=== PATIENT | male | born 1945 | race Caucasian/White ===

== ENCOUNTER 2019-02-03 10:16 | Inpatient (IN) ==
[2019-02-03] MEDS ORDERED: FUROSEMIDE 10 MG/ML VIAL IV ONE (10:27)
[2019-02-03 10:57] LABS: Hematocrit 42.4 % (42.0-52.0); Hemoglobin 14.2 gm/dL (13.5-18.0); Mean Corpuscular Hemoglobin 30.5 pg (27-31); Mean Corpuscular Hgb Conc 33.5 g/dl (32-36); Mean Platelet Volume 9.2 fl (8-11.3); Neutrophil # 8.7 K/mm3 (1.3-6.0); Platelet Count 294 K/mm3 (150-450); Red Blood Count 4.66 M/mm3 (4.7-6.0); Red Cell Distribution Width 14.2 % (11.5-14.0); White Blood Count 10.2 K/mm3 (4.0-10.5)
[2019-02-03 11:02] LABS: Prothrombin Time (Patient) 59.5 Seconds (9.1-10.7)
[2019-02-03 11:06] LABS: Urine Bilirubin Negative (NEGATIVE); Urine Blood 250 /ul (NEGATIVE); Urine Ketone Negative (NEGATIVE); Urine Nitrite Negative (NEGATIVE); Urine Protein 100 mg/dL (NEGATIVE); Urine Specific Gravity >=1.030 SP.GR. (1.005-1.030); Urine Urobilinogen Normal (NORMAL); Urine pH 5.5 pH (5.0-7.0)
[2019-02-03 11:13] LABS: INR 6.46 INR (0.92-1.08)
[2019-02-03 11:15] LABS: Albumin * 2.3 gm/dl (3.4-5.0); Anion Gap 13.4 mmol/L (6.8-13.8); BUN/Creatinine Ratio 13.8 (9.0-21.6); Bilirubin, Total 0.4 mg/dL (0.0-1.1); Carbon Dioxide 27.2 mmol/L (24-32.6); Potassium 5.6 mmol/L (3.4-4.6); Total Protein 6.5 gm/dL (6.2-8.2); Troponin I 0.093 ng/mL (0.00-0.10)
[2019-02-03 11:16] LABS: CRP 12.8 mg/dL (0.0-0.9)
[2019-02-03 11:25] LABS: Urine Appearance Turbid (CLEAR); Urine Bacteria 1+; Urine Color Brown; Urine RBC >50 /hpf (0-5); Urine WBC >50 /hpf (0-5); Urine Yeast Many - 3+
[2019-02-03] MEDS ORDERED: cefTRIAXone SODIUM 1,000 MG/100 ML BAG IV ONE (12:04)
--- NOTE | 2019-02-03 13:56 | ERNOTE ---
Medical Problem HPI - Narrative Date of Service: 02/03/19 - General Chief Complaint: General Assessment Time Seen by Provider: 02/03/19 10:18 Source: patient, family Exam Limitations: clinical condition - Immun/Allergies/Home Medications Immunizations: IMMUNIZATION HX Immunizations Up to Date Yes History of Influenza Vaccine No Hx Pneumococcal Vaccination No Allergies/Adverse Reactions: Allergies No Known Drug Allergies Allergy (Verified 01/29/19 10:15) Home Medications: HOME MEDICATIONS Acetaminophen [Tylenol] 650 mg PO Q4H PRN 01/26/19 [Last Taken Unknown] Ascorbic Acid [Vitamin C] 500 mg PO DAILY 01/26/19 [Last Taken Unknown] Atorvastatin Calcium [Lipitor] 20 mg PO DAILY 01/26/19 [Last Taken Unknown] Benzocaine/Menthol [Cepacol Sore Throat Lozenge] 1 ea MM Q4H PRN 01/26/19 [Last Taken Unknown] Cholecalciferol (Vitamin D3) [Vitamin D] 2,000 unit PO DAILY 01/26/19 [Last Taken Unknown] Cyclobenzaprine HCl [Flexeril] 10 mg PO TID 01/26/19 [Last Taken Unknown] DULoxetine HCL [Cymbalta] 40 mg PO DAILY 01/26/19 [Last Taken Unknown] Finasteride [Proscar] 5 mg PO DAILY 01/26/19 [Last Taken Unknown] Furosemide 20 mg PO QAM 01/26/19 [Last Taken Unknown] Gabapentin 300 mg PO TID 01/26/19 [Last Taken Unknown] HYDROcodone/ACETAMINOPHEN [[place] 5-325] 1 tab PO Q6H PRN 01/26/19 [Last Taken Unknown] Ibuprofen 800 mg PO TID 01/26/19 [Last Taken Unknown] Insulin Aspart [Novolog] 1 units SC AC 01/26/19 [Last Taken Unknown] Insulin Glargine,Hum.rec.anlog [Lantus] 60 units SC HS 01/26/19 [Last Taken Unknown] Levothyroxine Sodium [Synthroid] 25 mcg PO DAILY 01/26/19 [Last Taken Unknown] Losartan Potassium [Cozaar] 100 mg PO DAILY 01/26/19 [Last Taken Unknown] Metoclopramide HCl [Reglan] 5 mg PO DAILY 01/26/19 [Last Taken Unknown] Metoprolol Succinate [Toprol Xl] 50 mg PO DAILY 01/26/19 [Last Taken Unknown] Mirtazapine [Remeron] 30 mg PO HS 01/26/19 [Last Taken Unknown] Polyethylene Glycol 3350 [Miralax] 17 gm PO DAILY 01/26/19 [Last Taken Unknown] Potassium Chloride [Klor-Con M20] 40 meq PO DAILY 01/26/19 [Last Taken Unknown] Prochlorperazine Maleate 5 mg PO Q6H 01/26/19 [Last Taken Unknown] Psyllium Husk (with Sugar) [Metamucil] 1 pkt PO DAILY 01/26/19 [Last Taken Unknown] Sennosides/Docusate Sodium [Senna-S Tablet] 1 tab PO Q12H 01/26/19 [Last Taken Unknown] Tamsulosin HCl [Flomax] 0.4 mg PO DAILY 01/26/19 [Last Taken Unknown] Warfarin Sodium [Jantoven] 2.5 mg PO SUTUWETHSA 01/26/19 [Last Taken Unknown] Warfarin Sodium [Jantoven] 5 mg PO MOFR 01/26/19 [Last Taken Unknown] amLODIPine BESYLATE [Norvasc] 10 mg PO DAILY 01/26/19 [Last Taken Unknown] Sulfamethoxazole/Trimethoprim [Bactrim Ds] 1 tab PO BID 02/03/19 [Last Taken Unknown] - History of Present History Narrative: patient presents to ed with c/o fever confusion anf weakness, has been treated for uti and has had med changed once Timing: constant, getting worse Modifying Factors - (Improves): Present: other - nothing Modifying Factors - (Worsens): Present: other - nothing Review of Systems - Review of Systems Constitutional: Present: See HPI, weakness, fatigue, malaise EYE: Present: no symptoms reported ENT: Present: no symptoms reported Respiratory: Present: no symptoms reported Cardiology: Present: no symptoms reported Gastrointestinal/Abdominal: Present: no symptoms reported Genitourinary: Present: See HPI, other - ongoing treatment for uti Musculoskeletal: Present: no symptoms reported Skin: Present: no symptoms reported Neurological: Present: dizziness/light-headedness, weakness Medical History (Updated 02/02/19 @ 08:38 by Murtaza Dubon MD) Major depression, recurrent (Chronic) Atrial fibrillation (Chronic) Atherosclerotic heart disease of [place] coronary artery without angina pectoris Atrial fibrillation Benign prostate hyperplasia Cardiac pacemaker Chronic obstructive pulmonary disease Coagulation defect, unspecified Congestive heart failure (CHF) Depression Disorder of bilirubin metabolism, unspecified Family history unknown Gilbert syndrome Hypertension Hypokalemia Hypothyroidism [facility] (current) use of anticoagulants Low back pain Muscle wasting and atrophy, not elsewhere classified, multiple sites Obstructive sleep apnea Retention of urine Type 2 diabetes mellitus Surgical History: Surgical History (Updated 01/26/19 @ 21:38 by Ivon Espino RN) Surgical history unknown Social History: (Last Reviewed 02/03/19 @ 10:54 by Harshad Calero RN) Social History: assisted: Yes current occupational status: retired Alcohol: alcohol intake: former Substance Use: substance use type: does not use Dietary Habits: caffeine: No Physical Exam - Physical Exam General Appearance: Present: mild distress, lethargic Head Exam: Present: normal inspection, no evidence of injury Eye Exam: Normal inspection: bilateral, PERRL: bilateral, EOMI: bilateral Ears, Nose, Throat: Present: normal ENT inspection, cerumen impaction Neck: Present: normal inspection, nontender Respiratory: Present: no respiratory distress, normal breath sounds, no accessory muscle use, chest nontender, lungs clear Cardiovascular/Chest: Present: other - paced rhytm Peripheral Pulses: N=norm/S=strong/W=weak/B=bound/A=absent: Carotid (R): Normal, Carotid (L): Normal, Radial (R): Normal, Radial (L): Normal, Femoral (R): Normal, Femoral (L): Normal, Dorsalis-pedis (R): Normal Gastrointestinal/Abdominal: Present: normal bowel sounds, nontender, nondistended, soft, no organomegaly Back Exam: Present: normal inspection, normal range of motion, no CVA tenderness, no vertebral tenderness Extremity Exam: Present: normal inspection, non-tender, normal range of motion, no edema Neurological Exam: Present: alert, oriented, normal mood/affect, no motor/sensory deficits Skin Exam: Present: normal color, warm/dry Lymphatic Exam: Present: no adenopathy Progress - Date and Time Seen: Date and Time: 02/03/19 14:01 condition unchanged, discussed conditiion with family. who request patient be treated here in stead of [facility], dr sy accepts patient - Results and Orders Patient's Lab Results:: I have reviewed the patient's lab results. - Vital Signs Patient's Vital Signs:: I have reviewed the patient's vital signs. Vital Signs: Vital Signs 02/03/19 10:29 02/03/19 10:43 02/03/19 11:00 Temperature 36.0 C Pulse Rate 130 H 94 75 Respiratory Rate 14 14 Blood Pressure 102/30 94/55 102/52 O2 Sat by Pulse Oximetry 99 94 02/03/19 11:30 02/03/19 12:00 02/03/19 13:12 Temperature Pulse Rate 76 80 100 Respiratory Rate 17 14 13 Blood Pressure 122/103 H 81/54 L 89/64 L O2 Sat by Pulse Oximetry 99 99 96 - EKG EKG #1 EKG: other - paced rhythm EKG read: Interp. by me - X-Ray X-Ray #1 X-Ray: chest Interpretation: Discd w/ radiologist - no acute process - Progress/Reassessment Chief Complaint: General Assessment Progress:: Unchanged - Transfer of Care Expected Disposition: Admit Plan - Plan Plan: to admit to hospital Departure Clinical Impression: Urinary tract infection, Sepsis - Departure Disposition: Still a patient Condition: Serious
[2019-02-03] MEDS: NORMAL SALINE 1,000 ML IV PRN ×2 (14:00→22:45)
--- NOTE | 2019-02-03 16:41 | HP ---
Chief Complaint - Chief Complaint Date of Service: 02/03/19 Time of Service: 16:37 - fever/chills/ weakness Chief Complaint: fever/confusion/ weakness History of Present Illness: Vince St is a 73-year-old white male who is a resident of 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 The patient is confused and is not able to give a good history. As per on December 29, 2018 the patient fell on the floor and hit his stomach. He complained of severe pain and they brought him to the [facility] emergency room where x-rays and CAT scans were done and they were told that there was no reason for him to be kept in the hospital. They prescribed him pain meds for his extreme back pain. The following day the patient had appointments with the [facility] in [place] and because of his extreme pain he was wheeled to the urgent care center . They did a CAT scan which showed nothing and they were told that all blood tests were okay and so he was sent back on pain meds. The following day, the patient had problems with ambulation needing to use a walker and started having some urinary incontinence. He was then again told to go back to the [facility] emergency room and was admitted there from January 05 to January 15. He was told he had a gallbladder sludge and an infection of his gallbladder and was started on antibiotics. He also was not able to empty his bladder and had to be started on indwelling Murray catheter. He was sent to the [facility] for rehab. On January 26 the patient was seen at our emergency room because he was very confused he was told he had a urinary tract infection and was started on antibiotics Cipro which had to be changed because the bug was not sensitive to it he was started on Bactrim and his INR went up high. He has deteriorated for the last 2 weeks and is not able to stand and has been needing to use the [facility] for transport. He also has been extremely confused and his sugars have not been stable. He was supposed to go to the [facility] today for a follow-up but because of his condition with low blood pressures and tachycardia the [facility] advised her to bring her to our hospital. The emergency room his initial blood pressure was 102/30 and went down to 94/55and at one time 81/54. and he was given IV boluses. His INR was 6.46, potassium of 5.6, BUN/creatinine of 47 and 3.40, AST of 80 alkaline phosphatase of 177. His white blood cell count was 10.2, ABG of 7.46 CO2 30.5 P PO2 of 67.5 HCO3 of 23.4, oxygen saturation 94.6%. His urinalysis showed urinary tract infection. He was given IV antibiotics and was admitted for further evaluation and treatment. He is a DNR and does not want any heroic measures done. Medical History (Updated 02/03/19 @ 20:01 by Smith Solomon MD) Major depression, recurrent (Chronic) Atrial fibrillation (Chronic) Atherosclerotic heart disease of [place] coronary artery without angina pectoris Atrial fibrillation Benign prostate hyperplasia Cardiac pacemaker Chronic obstructive pulmonary disease Coagulation defect, unspecified Congestive heart failure (CHF) Depression Disorder of bilirubin metabolism, unspecified Family history unknown Gilbert syndrome Hypertension Hypokalemia Hypothyroidism correction (current) use of anticoagulants Low back pain Muscle wasting and atrophy, not elsewhere classified, multiple sites Obstructive sleep apnea Retention of urine Type 2 diabetes mellitus Surgical History: Surgical History (Updated 02/03/19 @ 16:41 by Smith Solomon MD) Surgical history unknown Social History: (Last Reviewed 02/03/19 @ 10:54 by Harshad Calero RN) Social History: chcf: Yes current occupational status: retired Alcohol: alcohol intake: former Substance Use: substance use type: does not use Dietary Habits: caffeine: No Review Of Systems (GEN) - Review of Systems Additional Comments: Unreliable due to patient's altered mental status. Immunizations: IMMUNIZATION HX Immunizations Up to Date Yes History of Influenza Vaccine No Hx Pneumococcal Vaccination No Allergies/Adverse Reactions: Allergies Allergy/AdvReac Type Severity Reaction Status Date / Time No Known Drug Allergies Allergy Verified 01/29/19 10:15 Home Medications: HOME MEDICATIONS Acetaminophen [Tylenol] 650 mg PO Q4H PRN 01/26/19 [Last Taken Unknown] Ascorbic Acid [Vitamin C] 500 mg PO DAILY 01/26/19 [Last Taken Unknown] Atorvastatin Calcium [Lipitor] 20 mg PO DAILY 01/26/19 [Last Taken Unknown] Benzocaine/Menthol [Cepacol Sore Throat Lozenge] 1 ea MM Q4H PRN 01/26/19 [Last Taken Unknown] Cholecalciferol (Vitamin D3) [Vitamin D] 2,000 unit PO DAILY 01/26/19 [Last Taken Unknown] Cyclobenzaprine HCl [Flexeril] 10 mg PO TID 01/26/19 [Last Taken Unknown] DULoxetine HCL [Cymbalta] 40 mg PO DAILY 01/26/19 [Last Taken Unknown] Finasteride [Proscar] 5 mg PO DAILY 01/26/19 [Last Taken Unknown] Furosemide 20 mg PO QAM 01/26/19 [Last Taken Unknown] Gabapentin 300 mg PO TID 01/26/19 [Last Taken Unknown] HYDROcodone/ACETAMINOPHEN [[place] 5-325] 1 tab PO Q6H PRN 01/26/19 [Last Taken Unknown] Ibuprofen 800 mg PO TID 01/26/19 [Last Taken Unknown] Insulin Aspart [Novolog] See Protocol SC AC 01/26/19 [Last Taken Unknown] Insulin Glargine,Hum.rec.anlog [Lantus] 30 units [facility] 01/26/19 [Last Taken Unknown] Levothyroxine Sodium [Synthroid] 25 mcg PO DAILY 01/26/19 [Last Taken Unknown] Losartan Potassium [Cozaar] 100 mg PO DAILY 01/26/19 [Last Taken Unknown] Metoclopramide HCl [Reglan] 5 mg PO DAILY 01/26/19 [Last Taken Unknown] Metoprolol Succinate [Toprol Xl] 50 mg PO DAILY 01/26/19 [Last Taken Unknown] Mirtazapine [Remeron] 30 mg PO 01/26/19 [Last Taken Unknown] Polyethylene Glycol 3350 [Miralax] 17 gm PO DAILY 01/26/19 [Last Taken Unknown] Potassium Chloride [Klor-Con M20] 40 meq PO DAILY 01/26/19 [Last Taken Unknown] Prochlorperazine Maleate 5 mg PO Q6H 01/26/19 [Last Taken Unknown] Psyllium Husk (with Sugar) [Metamucil] 1 pkt PO DAILY 01/26/19 [Last Taken Unknown] Sennosides/Docusate Sodium [Senna-S Tablet] 1 tab PO Q12H 01/26/19 [Last Taken Unknown] Tamsulosin HCl [Flomax] 0.4 mg PO DAILY 01/26/19 [Last Taken Unknown] Warfarin Sodium [Jantoven] 2.5 mg PO SUMOFRSA 01/26/19 [Last Taken Unknown] amLODIPine BESYLATE [Norvasc] 10 mg PO DAILY 01/26/19 [Last Taken Unknown] Sulfamethoxazole/Trimethoprim [Bactrim Ds] 1 tab PO BID 02/03/19 [Last Taken Unknown] Tramadol HCl [Rybix Odt] 50 mg PO Q6H PRN 02/03/19 [Last Taken Unknown] Vitamin E 400 unit PO DAILY 02/03/19 [Last Taken Unknown] traZODone HCL [Trazodone HCl] 25 mg PO HS PRN 02/03/19 [Last Taken Unknown] Exam - Exam Vital Signs: Vital Signs - Last Taken Temp 36.9 C 02/03/19 14:57 Pulse 75 02/03/19 14:57 Resp 18 02/03/19 14:57 BP 115/76 02/03/19 14:57 Pulse Ox 92 L 02/03/19 14:57 Constitutional: Present: Alert - AAO x 1 ENT Exam: Present: hearing grossly normal Eye Exam: bilateral eye: normal inspection, PERRL, EOMI Neck: Present: supple. Absent: lymphadenopathy (R), lymphadenopathy (L) Respiratory: Present: decreased breath sounds, No rales, No wheezing Cardiovascular/Chest: Present: regular rate, rhythm, no JVD, no murmur Abdomen: Present: Normal bowel sounds, soft, nontender, obese, negative Marinelli sign Extremity: Present: no calf tenderness, pedal edema Neurologic: Present: other - AAO x 1, no facial assymetry, loss of voice, able to raise UE, not able to move LE Diagnostic Studies: Abnormal Lab Results 02/03/19 02/03/19 02/03/19 Range/Units 10:27 10:41 10:41 RBC 4.66 L (4.7-6.0) M/mm3 RDW 14.2 H (11.5-14.0) % Immature Gran % (Auto) 1.40 H (0.001-0.429) % Immature Gran # (Auto) 0.14 H (0.000-0.0310) K/mm3 Neutrophils % 85.0 H (42-75.0) % Lymphocytes % 8.0 L (20-51) % Neutrophils # 8.7 H (1.3-6.0) K/mm3 Lymphocytes # 0.82 L (1.5-3.5) k/mm3 PT (9.1-10.7) Seconds INR (Anticoag Therapy) (0.92-1.08) INR pCO2 (35.0-48.0) mmHg pO2 (83.0-108.0) mmHg ABG pH (7.35-7.45) Sodium 130 L (132-142) mmol/L Potassium 5.6 H (3.4-4.6) mmol/L Chloride 95 L (97-106) mmol/L BUN 47 H D (6-23) mg/dL Creatinine 3.40 H D (0.4-1.4) mg/dL Est GFR (Non-Af Amer) 19 L D (60-130) mL/min Random Glucose 221 H (70-110) mg/dL Lactic Acid, Venous (0.4-2.0) mmol/L AST 80 H (0-48) U/L Alkaline Phosphatase 177 H (50-170) U/L C-Reactive Prot, Quant 12.8 H (0.0-0.9) mg/dL Albumin 2.3 L (3.4-5.0) gm/dl Urine Protein 100 H (NEGATIVE) mg/dL Urine Blood 250 H (NEGATIVE) /ul Prot Sulfosalicylic Acd 4+ H (0) mg/dL Ur Leukocyte Esterase 100 H (NEGATIVE) /ul Urine RBC >50 H (0-5) /hpf Urine WBC >50 H (0-5) /hpf Urine Bacteria 1+ H (NONE) Urine Yeast Many - 3+ H (NONE) 02/03/19 02/03/19 02/03/19 Range/Units 10:41 10:41 11:25 RBC (4.7-6.0) M/mm3 RDW (11.5-14.0) % Immature Gran % (Auto) (0.001-0.429) % Immature Gran # (Auto) (0.000-0.0310) K/mm3 Neutrophils % (42-75.0) % Lymphocytes % (20-51) % Neutrophils # (1.3-6.0) K/mm3 Lymphocytes # (1.5-3.5) k/mm3 PT 59.5 H (9.1-10.7) Seconds INR (Anticoag Therapy) 6.46 H* (0.92-1.08) INR pCO2 30.5 L (35.0-48.0) mmHg pO2 67.5 L (83.0-108.0) mmHg ABG pH 7.46 H (7.35-7.45) Sodium (132-142) mmol/L Potassium (3.4-4.6) mmol/L Chloride (97-106) mmol/L BUN (6-23) mg/dL Creatinine (0.4-1.4) mg/dL Est GFR (Non-Af Amer) (60-130) mL/min Random Glucose (70-110) mg/dL Lactic Acid, Venous 3.3 H* (0.4-2.0) mmol/L AST (0-48) U/L Alkaline Phosphatase (50-170) U/L C-Reactive Prot, Quant (0.0-0.9) mg/dL Albumin (3.4-5.0) gm/dl Urine Protein (NEGATIVE) mg/dL Urine Blood (NEGATIVE) /ul Prot Sulfosalicylic Acd (0) mg/dL Ur Leukocyte Esterase (NEGATIVE) /ul Urine RBC (0-5) /hpf Urine WBC (0-5) /hpf Urine Bacteria (NONE) Urine Yeast (NONE) 02/03/19 Range/Units 13:21 RBC (4.7-6.0) M/mm3 RDW (11.5-14.0) % Immature Gran % (Auto) (0.001-0.429) % Immature Gran # (Auto) (0.000-0.0310) K/mm3 Neutrophils % (42-75.0) % Lymphocytes % (20-51) % Neutrophils # (1.3-6.0) K/mm3 Lymphocytes # (1.5-3.5) k/mm3 PT (9.1-10.7) Seconds INR (Anticoag Therapy) (0.92-1.08) INR pCO2 (35.0-48.0) mmHg pO2 (83.0-108.0) mmHg ABG pH (7.35-7.45) Sodium (132-142) mmol/L Potassium (3.4-4.6) mmol/L Chloride (97-106) mmol/L BUN (6-23) mg/dL Creatinine (0.4-1.4) mg/dL Est GFR (Non-Af Amer) (60-130) mL/min Random Glucose (70-110) mg/dL Lactic Acid, Venous 2.7 H* (0.4-2.0) mmol/L AST (0-48) U/L Alkaline Phosphatase (50-170) U/L C-Reactive Prot, Quant (0.0-0.9) mg/dL Albumin (3.4-5.0) gm/dl Urine Protein (NEGATIVE) mg/dL Urine Blood (NEGATIVE) /ul Prot Sulfosalicylic Acd (0) mg/dL Ur Leukocyte Esterase (NEGATIVE) /ul Urine RBC (0-5) /hpf Urine WBC (0-5) /hpf Urine Bacteria (NONE) Urine Yeast (NONE) Laboratory Results WBC 10.2 K/mm3 (4.0-10.5) 02/03/19 10:41 RBC 4.66 M/mm3 (4.7-6.0) L 02/03/19 10:41 Hgb 14.2 gm/dL (13.5-18.0) 02/03/19 10:41 Hct 42.4 % (42.0-52.0) 02/03/19 10:41 MCV 91.0 fl (78-100) 02/03/19 10:41 MCH 30.5 pg (27-31) 02/03/19 10:41 MCHC 33.5 g/dl (32-36) 02/03/19 10:41 RDW 14.2 % (11.5-14.0) H 02/03/19 10:41 Plt Count 294 K/mm3 (150-450) 02/03/19 10:41 MPV 9.2 fl (8-11.3) 02/03/19 10:41 Immature Gran % (Auto) 1.40 % (0.001-0.429) H 02/03/19 10:41 Immature Gran # (Auto) 0.14 K/mm3 (0.000-0.0310) H 02/03/19 10:41 85.0 % (42-75.0) H 02/03/19 10:41 8.0 % (20-51) L 02/03/19 10:41 5.0 % (0.0-9) 02/03/19 10:41 0.4 % (0.0-3.0) 02/03/19 10:41 0.2 % (0.0-1.0) 02/03/19 10:41 Nucleated RBC % 0.0 k/mm3 (0-1) 02/03/19 10:41 8.7 K/mm3 (1.3-6.0) H 02/03/19 10:41 0.82 k/mm3 (1.5-3.5) L 02/03/19 10:41 0.5 k/mm3 (0.0-1.0) 02/03/19 10:41 0.0 k/mm3 (0.0-0.7) 02/03/19 10:41 Absolute Basophils 0.0 k/mm3 (0.0-0.1) 02/03/19 10:41 PT 59.5 Seconds (9.1-10.7) H 02/03/19 10:41 INR (Anticoag Therapy) 6.46 INR (0.92-1.08) H* 02/03/19 10:41 pCO2 30.5 mmHg (35.0-48.0) L 02/03/19 11:25 pO2 67.5 mmHg (83.0-108.0) L 02/03/19 11:25 HCO3 21.4 mmol/L (21.0-28.0) 02/03/19 11:25 Total CO2 22.3 mmol/L (19.0-24.0) 02/03/19 11:25 Base Excess -1.3 mmol/L (-2.0-3.0) 02/03/19 11:25 ABG pH 7.46 (7.35-7.45) H 02/03/19 11:25 ABG O2 Sat (Measured) 94.6 % (94.0-98.0) 02/03/19 11:25 Sodium 130 mmol/L (132-142) L 02/03/19 10:41 132 mmol/L (130-142) 02/03/19 10:41 Potassium 5.6 mmol/L (3.4-4.6) H 02/03/19 10:41 Chloride 95 mmol/L (97-106) L 02/03/19 10:41 Carbon Dioxide 27.2 mmol/L (24-32.6) 02/03/19 10:41 13.4 mmol/L (6.8-13.8) 02/03/19 10:41 BUN 47 mg/dL (6-23) H D 02/03/19 10:41 3.40 mg/dL (0.4-1.4) H D 02/03/19 10:41 Est GFR (Non-Af Amer) 19 mL/min (60-130) L D 02/03/19 10:41 13.8 (9.0-21.6) 02/03/19 10:41 221 mg/dL (70-110) H 02/03/19 10:41 2.7 mmol/L (0.4-2.0) H* 02/03/19 13:21 Calcium 9.0 mg/dL (7.9-10.9) 02/03/19 10:41 Calcium Adj for Albumin 10.0 mg/dL (8.4-10.2) 02/03/19 10:41 0.4 mg/dL (0.0-1.1) 02/03/19 10:41 AST 80 U/L (0-48) H 02/03/19 10:41 ALT 35 U/L (19-67) 02/03/19 10:41 177 U/L (50-170) H 02/03/19 10:41 0.093 ng/mL (0.00-0.10) 02/03/19 10:41 C-Reactive Prot, Quant 12.8 mg/dL (0.0-0.9) H 02/03/19 10:41 B-Natriuretic Peptide 644 pg/mL (5-650) 02/03/19 10:41 6.5 gm/dL (6.2-8.2) 02/03/19 10:41 2.3 gm/dl (3.4-5.0) L 02/03/19 10:41 Brown 02/03/19 10:27 Turbid (CLEAR) 02/03/19 10:27 5.5 pH (5.0-7.0) 02/03/19 10:27 Ur Specific [place] >=1.030 SP.GR. (1.005-1.030) 02/03/19 10:27 100 mg/dL (NEGATIVE) H 02/03/19 10:27 Negative mg/dL (NEGATIVE) 02/03/19 10:27 Negative mg/dL (NEGATIVE) 02/03/19 10:27 250 /ul (NEGATIVE) H 02/03/19 10:27 Negative (NEGATIVE) 02/03/19 10:27 Negative mg/dl (NEGATIVE) 02/03/19 10:27 Prot Sulfosalicylic Acd 4+ mg/dL (0) H 02/03/19 10:27 Normal EU/dl (NORMAL) 02/03/19 10:27 Ur Leukocyte Esterase 100 /ul (NEGATIVE) H 02/03/19 10:27 >50 /hpf (0-5) H 02/03/19 10:27 >50 /hpf (0-5) H 02/03/19 10:27 Ur Epithelial Cells 0-5 /hpf (0-5) 02/03/19 10:27 1+ (NONE) H 02/03/19 10:27 Many - 3+ (NONE) H 02/03/19 10:27 Culture to follow 02/03/19 10:27 Assessment/Plan - Narrative Narrative: Vince St has sepsis with septic shock from urinary tract infection causing weakness with altered mental status. His lactic acidosis is likely due to his sepsis.. We will continue with IV fluids and IV antibiotics, await urine cultures and blood culture results. We will continue him with his home medications but will hold his blood pressure medications at this point in time. We will also hold his Coumadin as his INR is elevated. He has no gross bleeding at this point in time and will defer giving vitamin K. His acute renal failure on chronic renal failure hopefully will improve with IV fluid hydration and correction of his sepsis. We will get an ultrasound of his gallbladder in case he does have recurrent acute cholecystitis. He was recently treated for it in [facility] with antibiotics. - Assessment/Plan (1) Altered mental status Problem: Acute Qualifiers: Altered mental status type: unspecified Qualified Code(s): R41.82 - Altered mental status, unspecified (2) Urinary tract infection Problem: Acute (3) Sepsis Problem: Acute (4) Elevated INR Problem: Acute (5) Lactic acidosis Problem: Acute (6) Major depression, recurrent Problem: Chronic Qualifiers: Active/Remission status: currently active Major depression episode severity: unspecified Qualified Code(s): F33.9 - Major depressive disorder, recurrent, unspecified (7) Atrial fibrillation Problem: Chronic Qualifiers: Atrial fibrillation type: chronic (8) Hypothyroidism Problem: Acute (9) Diabetes mellitus Problem: Acute (10) Elevated alkaline phosphatase level Assessment: and AST. Problem: Acute
[2019-02-03] MEDS ORDERED: ACETAMINOPHEN 325 MG TABLET PO PRN (17:30)
[2019-02-03] MEDS ORDERED: HYDROcodone/ACETAMINOPHEN 1 EACH TABLET PO PRN (17:30)
[2019-02-03] MEDS: INSULIN LISPRO 100 UNITS/ML VIAL SC SCH (20:15)
[2019-02-03] MEDS: SENNOSIDES/DOCUSATE SODIUM 1 TAB TABLET PO SCH (20:15)
[2019-02-03] MEDS ORDERED: PHYTONADIONE (VIT K1) 5 MG TABLET PO ONE (20:47)
[2019-02-03] MEDS ORDERED: INSULIN ASPART 100 UNITS/ML VIAL SC SCH (21:00)
[2019-02-03] MEDS ORDERED: INSULIN GLARGINE,HUM.REC.ANLOG 100 UNITS/ML VIAL SC SCH ×2 (21:00)
[2019-02-04] MEDS ORDERED: NORMAL SALINE 500 ML IV ONE ×3 (05:34→11:30)
[2019-02-04 06:05] LABS: Hematocrit 40.5 % (42.0-52.0); Hemoglobin 13.4 gm/dL (13.5-18.0); Mean Cell Volume 90.6 fl (78-100); Mean Corpuscular Hgb Conc 33.1 g/dl (32-36); Mean Platelet Volume 9.3 fl (8-11.3); Neutrophil # 11.1 K/mm3 (1.3-6.0); Neutrophil % 92.7 % (42-75.0); Platelet Count 297 K/mm3 (150-450); Red Blood Count 4.47 M/mm3 (4.7-6.0); Red Cell Distribution Width 14.6 % (11.5-14.0); White Blood Count 11.9 K/mm3 (4.0-10.5)
[2019-02-04 06:23] LABS: Anion Gap 14.8 mmol/L (6.8-13.8); BUN/Creatinine Ratio 17.3 (9.0-21.6); Calcium * 8.5 mg/dL (7.9-10.9); Carbon Dioxide 21.1 mmol/L (24-32.6); Potassium 5.9 mmol/L (3.4-4.6)
[2019-02-04 06:46] LABS: Prothrombin Time (Patient) 67.2 Seconds (9.1-10.7)
[2019-02-04 07:02] LABS: INR 7.33 INR (0.92-1.08)
[2019-02-04] MEDS: INSULIN LISPRO 100 UNITS/ML VIAL SC SCH ×4 (07:54→21:20)
[2019-02-04] MEDS: SENNOSIDES/DOCUSATE SODIUM 1 TAB TABLET PO SCH ×2 (07:56→17:33)
[2019-02-04] MEDS: NORMAL SALINE 1,000 ML IV PRN ×3 (08:51→19:01)
[2019-02-04] MEDS ORDERED: PHYTONADIONE (VIT K1) 5 MG TABLET PO ONE (09:33)
[2019-02-04] MEDS: POLYETHYLENE GLYCOL 3350 17 GM PACKET PO SCH (09:58)
[2019-02-04] MEDS: PSYLLIUM SEED 1 PACKET PACKET PO SCH (09:58)
[2019-02-04] MEDS: FINASTERIDE 5 MG TABLET PO SCH (09:59)
[2019-02-04] MEDS: LEVOTHYROXINE SODIUM 25 MCG TABLET PO SCH (09:59)
[2019-02-04] MEDS: METOCLOPRAMIDE HCL 5 MG TABLET PO SCH (09:59)
[2019-02-04] MEDS: DULoxetine HCL 20 MG CAPSULE.SA PO SCH (09:59)
[2019-02-04] MEDS: GABAPENTIN 300 MG CAPSULE PO SCH ×3 (10:00→21:45)
--- NOTE | 2019-02-04 12:10 | PN ---
Subjective - Date and Time Seen Date: 02/04/19 Time: 12:07 Subjective Narrative: Patient remains confused. Has had low blood pressures and low urine output. His US showed acute chlocystitis. He had acute cholecystitis in early part of January and was treated with antibiotics in the [place] hospital. He was supposed to follow up with them on the day of his admission to set up a surgical date. ADDENDUM: His medical records from last [place] admission arrived- he had right renal mass, BPH and needed mercado cath- refer to UROLOGY; acute cholecystits - schedule outpatient cholecystectomy. Objective - Review of Systems Misc: All systems neg except as marked - unobtainable due to confusion. - Vitals Vitals: Last Vital Signs Temp 36.8 C 02/04/19 11:15 Pulse 79 02/04/19 11:15 Resp 20 02/04/19 11:15 BP 66/46 L 02/04/19 11:15 Pulse Ox 96 02/04/19 11:15 - Abnormal Lab Findings Abnormal Lab Findings: Abnormal Lab Results 02/03/19 02/04/19 02/04/19 Range/Units 13:21 05:55 05:55 WBC 11.9 H (4.0-10.5) K/mm3 RBC 4.47 L (4.7-6.0) M/mm3 Hgb 13.4 L (13.5-18.0) gm/dL Hct 40.5 L (42.0-52.0) % RDW 14.6 H (11.5-14.0) % Immature Gran % (Auto) 1.40 H (0.001-0.429) % Immature Gran # (Auto) 0.17 H (0.000-0.0310) K/mm3 Neutrophils % 92.7 H (42-75.0) % Lymphocytes % 2.9 L (20-51) % Neutrophils # 11.1 H (1.3-6.0) K/mm3 Lymphocytes # 0.35 L (1.5-3.5) k/mm3 PT 67.2 H (9.1-10.7) Seconds INR (Anticoag Therapy) 7.33 H* (0.92-1.08) INR Sodium (132-142) mmol/L Potassium (3.4-4.6) mmol/L Carbon Dioxide (24-32.6) mmol/L Anion Gap (6.8-13.8) mmol/L BUN (6-23) mg/dL Creatinine (0.4-1.4) mg/dL Est GFR (Non-Af Amer) (60-130) mL/min Random Glucose (70-110) mg/dL Lactic Acid, Venous 2.7 H* (0.4-2.0) mmol/L 02/04/19 Range/Units 05:55 WBC (4.0-10.5) K/mm3 RBC (4.7-6.0) M/mm3 Hgb (13.5-18.0) gm/dL Hct (42.0-52.0) % RDW (11.5-14.0) % Immature Gran % (Auto) (0.001-0.429) % Immature Gran # (Auto) (0.000-0.0310) K/mm3 Neutrophils % (42-75.0) % Lymphocytes % (20-51) % Neutrophils # (1.3-6.0) K/mm3 Lymphocytes # (1.5-3.5) k/mm3 PT (9.1-10.7) Seconds INR (Anticoag Therapy) (0.92-1.08) INR Sodium 131 L (132-142) mmol/L Potassium 5.9 H (3.4-4.6) mmol/L Carbon Dioxide 21.1 L (24-32.6) mmol/L Anion Gap 14.8 H (6.8-13.8) mmol/L BUN 64 H (6-23) mg/dL Creatinine 3.69 H (0.4-1.4) mg/dL Est GFR (Non-Af Amer) 17 L (60-130) mL/min Random Glucose 216 H (70-110) mg/dL Lactic Acid, Venous (0.4-2.0) mmol/L - Exam Constitutional: Present: Alert - AAO x 1 Neck: Present: supple Respiratory: Present: decreased breath sounds, No rales, No wheezing Cardiovascular/Chest: Present: regular rate, rhythm, no JVD Abdomen: Present: Normal bowel sounds, soft, nontender, nondistended Extremity: Present: no calf tenderness, pedal edema Cauti Physician Documentation - Urinary Catheter Management Urethral ([place]) Date of Insertion: 02/04/19 Time of Insertion: 09:05 Date of Removal: 02/04/19 Time of Removal: 09:00 Assessment/Plan Plan Narrative: Vince St has been having low blood pressures and low urine output. His creatinine is up to 3.9 today from 3.5. His INR went up to 7.9. Vitamin K was given. His urinalysis is growing yeast more than 100,000. Blood cultures no growth in 24 hours. We did do an ultrasound of his gallbladder and thAT shows gallbladder sludge with thickened gallbladder wall and a common bile duct of 6.7 mm consider acute cholecystitis. We will give him IVf bolus and if his blood pressure does not respond significantly we will transfer him to the unit and start him on a norepinephrine drip. We will get a surgical consult just to keep them on the loop for now but he will need to be stabilized first if he will need to have surgery. I discussed plan of management with the and she agrees with plan. We will continue with IVF and monitor I and O. We will d/c his Rocephin and start him on IV meropemen, give him 1 dose of IV Vanco as he has had instrumentations, and and although the yeast could be a colonization we will start him anyway on Diflucan due to his sepsis picture. The knows that if after 1 or 2 days of IV antibiotics, the patient does not clinically improve and is even gets worse we will just stop everything and do comfort cares. He is a DNR. - Problems/Diagnosis (1) Altered mental status Problem: Acute Qualifiers: Altered mental status type: unspecified Qualified Code(s): R41.82 - Altered mental status, unspecified (2) Low urine output Problem: Acute (3) Hypotension Problem: Acute (4) Acute cholecystitis Problem: Acute (5) Urinary tract infection Problem: Acute (6) Sepsis Problem: Acute (7) Elevated INR Problem: Acute (8) Lactic acidosis Problem: Acute (9) Major depression, recurrent Problem: Chronic Qualifiers: Active/Remission status: currently active Major depression episode severity: unspecified Qualified Code(s): F33.9 - Major depressive disorder, recurrent, unspecified (10) Atrial fibrillation Problem: Chronic Qualifiers: Atrial fibrillation type: chronic (11) Hypothyroidism Problem: Acute (12) Diabetes mellitus Problem: Acute (13) Elevated alkaline phosphatase level Problem: Acute
[2019-02-04] MEDS ORDERED: [UNRECOGNIZED DRUG - OTHER] IV ONE (13:00)
[2019-02-04] MEDS: MEROPENEM 500 MG in NORMAL SALINE 100 ML IV SCH (14:00)
--- NOTE | 2019-02-04 14:26 | CONS ---
[facility] - General Date of Service: 02/04/19 Narrative: acute nathan Source: family Exam Limitations: clinical condition - History of Present Illness Initial Comments: Mr. St is a pleasant 73-year-old gentleman who is in the SCU for sepsis. He has a UTI. There is a question of acute cholecystitis. He is minimally responsive. His INR is significantly elevated. While I am in the room he has an arterial stick done and does not move. He has a CPAP machine on. He is morbidly obese. His is at the bedside. She states he was previously at the [place] and they thought he was a poor surgical candidate for his gallbladder. She is discussing comfort measures. She is uncertain if she would want him to have a cholecystostomy tube. She looks at him and states that this is not living. Timing/Duration: 1 week Severity: severe Associated Symptoms: denies symptoms - Unable to obtain Allergies/Adverse Reactions: Allergies No Known Drug Allergies Allergy (Verified 01/29/19 10:15) Home Medications: Home Medications Medication Instructions Recorded Last Taken Acetaminophen [Tylenol] 650 mg PO Q4H PRN 01/26/19 Unknown Ascorbic Acid [Vitamin C] 500 mg PO DAILY 01/26/19 Unknown Atorvastatin Calcium [Lipitor] 20 mg PO DAILY 01/26/19 Unknown Benzocaine/Menthol [Cepacol Sore 1 ea MM Q4H PRN 01/26/19 Unknown Throat Lozenge] Cholecalciferol (Vitamin D3) 2,000 unit PO DAILY 01/26/19 Unknown [Vitamin D] Cyclobenzaprine HCl [Flexeril] 10 mg PO TID 01/26/19 Unknown DULoxetine HCL [Cymbalta] 40 mg PO DAILY 01/26/19 Unknown Finasteride [Proscar] 5 mg PO DAILY 01/26/19 Unknown Furosemide 20 mg PO QAM 01/26/19 Unknown Gabapentin 300 mg PO TID 01/26/19 Unknown HYDROcodone/ACETAMINOPHEN [[place] 1 tab PO Q6H PRN 01/26/19 Unknown 5-325] Ibuprofen 800 mg PO TID 01/26/19 Unknown Insulin Aspart [Novolog] See Protocol SC AC 01/26/19 Unknown Insulin Glargine,Hum.rec.anlog 30 units SC HS 01/26/19 Unknown [Lantus] Levothyroxine Sodium [Synthroid] 25 mcg PO DAILY 01/26/19 Unknown Losartan Potassium [Cozaar] 100 mg PO DAILY 01/26/19 Unknown Metoclopramide HCl [Reglan] 5 mg PO DAILY 01/26/19 Unknown Metoprolol Succinate [Toprol Xl] 50 mg PO DAILY 01/26/19 Unknown Mirtazapine [Remeron] 30 mg PO HS 01/26/19 Unknown Polyethylene Glycol 3350 [Miralax] 17 gm PO DAILY 01/26/19 Unknown Potassium Chloride [Klor-Con M20] 40 meq PO DAILY 01/26/19 Unknown Prochlorperazine Maleate 5 mg PO Q6H 01/26/19 Unknown Psyllium Husk (with Sugar) 1 pkt PO DAILY 01/26/19 Unknown [Metamucil] Sennosides/Docusate Sodium 1 tab PO Q12H 01/26/19 Unknown [Senna-S Tablet] Tamsulosin HCl [Flomax] 0.4 mg PO DAILY 01/26/19 Unknown Warfarin Sodium [Jantoven] 2.5 mg PO SUMOFRSA 01/26/19 Unknown amLODIPine BESYLATE [Norvasc] 10 mg PO DAILY 01/26/19 Unknown Sulfamethoxazole/Trimethoprim 1 tab PO BID 02/03/19 Unknown [Bactrim Ds] Tramadol HCl [Rybix Odt] 50 mg PO Q6H PRN 02/03/19 Unknown Vitamin E 400 unit PO DAILY 02/03/19 Unknown traZODone HCL [Trazodone HCl] 25 mg PO HS PRN 02/03/19 Unknown Medications - Medications Current Medications: Current Medications Acetaminophen (Tylenol) 650 mg PO Q4H PRN PRN Reason: Pain Stop: 03/05/19 17:31 Last Admin: 02/04/19 10:10 Dose: 650 mg Documented by: Duloxetine HCl (Cymbalta) 40 mg PO DAILY [facility] Stop: 03/06/19 09:01 Last Admin: 02/04/19 09:59 Dose: 40 mg Documented by: Finasteride (Proscar) 5 mg PO DAILY [facility] Stop: 03/06/19 09:01 Last Admin: 02/04/19 09:59 Dose: 5 mg Documented by: Gabapentin (Neurontin) 300 mg PO TID@0700,1400,2100 [facility] Stop: 03/06/19 07:01 Last Admin: 02/04/19 13:09 Dose: Not Given Documented by: Sodium Chloride (Sodium Chloride 0.9%) 1,000 mls @ 200 mls/hr IV .Q5H PRN PRN Reason: HYDRATION Stop: 03/05/19 14:07 Last Admin: 02/04/19 12:46 Dose: 200 mls/hr Documented by: Insulin Human Lispro (Humalog) 0 - 21 units SC [facility]; Protocol Stop: 03/05/19 21:01 Last Admin: 02/04/19 12:24 Dose: Not Given Documented by: Levothyroxine Sodium (Synthroid) 25 mcg PO DAILY@0700 [facility] Stop: 03/06/19 07:01 Last Admin: 02/04/19 09:59 Dose: 25 mcg Documented by: Metoclopramide HCl (Reglan) 5 mg PO DAILY [facility] Stop: 03/06/19 09:01 Last Admin: 02/04/19 09:59 Dose: 5 mg Documented by: Polyethylene Glycol (Miralax) 17 gm PO DAILY [facility] Stop: 03/06/19 09:01 Last Admin: 02/04/19 09:58 Dose: Not Given Documented by: Psyllium Hydrophilic Mucilloid (Metamucil) 1 each PO DAILY [facility] Stop: 03/06/19 09:01 Last Admin: 02/04/19 09:58 Dose: Not Given Documented by: Senna/Docusate Sodium (Senokot-S) 1 tab PO Q12H [facility] Stop: 03/05/19 18:01 Last Admin: 02/04/19 07:56 Dose: Not Given Documented by: Review of Systems - Review of Systems Narrative: Unable to obtain review of systems due to inability to participate Physical Examination - Exam Vital Signs: Vital Signs - Last Taken Temp 36.8 C 02/04/19 11:15 Pulse 80 02/04/19 13:48 Resp 14 02/04/19 13:48 BP 118/55 02/04/19 13:48 Pulse Ox 100 02/04/19 13:48 O2 Oxygen Delivery Method CPAP Constitutional: Present: No distress, Obtunded, Morbidly obese ENT Exam: Present: normal ENT inspection Neck: Present: supple Breasts: Present: Exam deferred Respiratory: Present: normal breath sounds, no respiratory distress Cardiovascular/Chest: Present: regular rate, rhythm Abdomen: Present: soft, nontender, nondistended, obese. Absent: tender, guarding, rigidity, rebound tenderness /Rectal: Present: Exam deferred Skin Exam: Present: normal color Neurologic: Absent: alert, normal mood/affect, oriented x 3 Appearance: Absent: appropriate appearance, no memory impairment Eye contact: Absent: good eye contact Thoughts: Absent: normal thought pattern - Results and Findings: Lab/Microbiology results last 24 hrs: Abnormal/Pending Laboratory Last 24 HRS 02/04/19 02/04/19 02/04/19 13:40 13:40 13:07 WBC RBC Hgb Hct RDW Immature Gran % (Auto) Immature Gran # (Auto) Neutrophils % Lymphocytes % Neutrophils # Lymphocytes # PT INR (Anticoag Therapy) Fibrinogen 481 H D-Dimer 1.98 H pCO2 26.5 L HCO3 15.4 L Total CO2 16.2 L Base Excess -8.2 L Sodium Potassium Carbon Dioxide Anion Gap BUN Creatinine Est GFR (Non-Af Amer) Random Glucose 02/04/19 02/04/19 02/04/19 05:55 05:55 05:55 WBC 11.9 H RBC 4.47 L Hgb 13.4 L Hct 40.5 L RDW 14.6 H Immature Gran % (Auto) 1.40 H Immature Gran # (Auto) 0.17 H Neutrophils % 92.7 H Lymphocytes % 2.9 L Neutrophils # 11.1 H Lymphocytes # 0.35 L PT 67.2 H INR (Anticoag Therapy) 7.33 H* Fibrinogen D-Dimer pCO2 HCO3 Total CO2 Base Excess Sodium 131 L Potassium 5.9 H Carbon Dioxide 21.1 L Anion Gap 14.8 H BUN 64 H Creatinine 3.69 H Est GFR (Non-Af Amer) 17 L Random Glucose 216 H Culture 02/03/19 10:51 Blood Culture - Preliminary Blood NO GROWTH 24 HOURS 02/03/19 10:41 Blood Culture - Preliminary Blood NO GROWTH 24 HOURS 02/03/19 15:40 - Final Nares MRSA Positive 02/03/19 10:27 Urine Culture - Preliminary Urine,Voided Yeast Species - Assessments/Findings (1) Acute cholecystitis Problem: Acute Plan - Plan Plan: The patient is a very poor surgical candidate with multiple medical comorbidities. His INR is too high to consider surgery or a cholecystostomy tube. He is essentially unresponsive in the room, he does not even move with an arterial blood gas stick. His is discussing comfort measures. I spoke with Dr. Solomon. I think he would be a poor surgical candidate. If his INR was lower and the family wanted to proceed he could have a cholecystostomy tube. I spent 30 minutes in critical care time of reviewing records, talking to family and talking to Dr. Solomon.
[2019-02-04] MEDS: VANCOMYCIN HCL 1 GM in DEXTROSE 5 % IN WATER 250 ML IV SCH ×2 (16:20)
[2019-02-04] MEDS: INSULIN GLARGINE,HUM.REC.ANLOG 100 UNITS/ML VIAL SC SCH (22:25)
[2019-02-05] MEDS: NORMAL SALINE 1,000 ML IV PRN ×3 (00:43→17:07)
[2019-02-05] MEDS: MEROPENEM 500 MG in NORMAL SALINE 100 ML IV SCH ×2 (03:08→14:48)
[2019-02-05] MEDS: SENNOSIDES/DOCUSATE SODIUM 1 TAB TABLET PO SCH ×2 (05:08→17:11)
[2019-02-05 05:59] LABS: Hematocrit 37.8 % (42.0-52.0); Hemoglobin 12.4 gm/dL (13.5-18.0); Mean Corpuscular Hemoglobin 30.2 pg (27-31); Mean Corpuscular Hgb Conc 32.8 g/dl (32-36); Mean Platelet Volume 9.1 fl (8-11.3); Neutrophil # 8.2 K/mm3 (1.3-6.0); Neutrophil % 89.7 % (42-75.0); Platelet Count 256 K/mm3 (150-450); Red Blood Count 4.11 M/mm3 (4.7-6.0); Red Cell Distribution Width 14.7 % (11.5-14.0); White Blood Count 9.1 K/mm3 (4.0-10.5)
[2019-02-05 06:15] LABS: Albumin * 1.8 gm/dl (3.4-5.0); Anion Gap 15.7 mmol/L (6.8-13.8); BUN/Creatinine Ratio 26.5 (9.0-21.6); Bilirubin, Total 0.4 mg/dL (0.0-1.1); Ca. Corrected For Albumin 10.2 mg/dL (8.4-10.2); Calcium * 8.8 mg/dL (7.9-10.9); Carbon Dioxide 20.7 mmol/L (24-32.6); Potassium 5.4 mmol/L (3.4-4.6); Total Protein 5.6 gm/dL (6.2-8.2)
--- NOTE | 2019-02-05 07:26 | PN ---
Subjective - Date and Time Seen Date: 02/05/19 Time: 06:59 Subjective Narrative: Patient wakes up to name call. asked how he was doing and he started to talk but could not make any sound. when i told him that he has not recovered his voice yet , he nodded his head to afirm. Objective - Review of Systems Misc: All systems neg except as marked - unobtainable due to AMS but improving - Vitals Vitals: Last Vital Signs Temp 36.6 C 02/05/19 00:00 Pulse 79 02/05/19 06:08 Resp 12 02/05/19 06:08 BP 153/64 H 02/05/19 04:41 Pulse Ox 98 02/05/19 06:08 - Abnormal Lab Findings Abnormal Lab Findings: Abnormal Lab Results 02/04/19 02/04/19 02/04/19 Range/Units 05:55 13:07 13:40 RBC (4.7-6.0) M/mm3 Hgb (13.5-18.0) gm/dL Hct (42.0-52.0) % RDW (11.5-14.0) % Immature Gran % (Auto) (0.001-0.429) % Immature Gran # (Auto) (0.000-0.0310) K/mm3 Neutrophils % (42-75.0) % Lymphocytes % (20-51) % Neutrophils # (1.3-6.0) K/mm3 Lymphocytes # (1.5-3.5) k/mm3 PT 67.2 H (9.1-10.7) Seconds INR (Anticoag Therapy) 7.33 H* (0.92-1.08) INR PTT ([place]) (24-32) Seconds Fibrinogen 481 H (202-388) mg/dL D-Dimer (0.19-0.49) ug/mL pCO2 26.5 L (35.0-48.0) mmHg HCO3 15.4 L (21.0-28.0) mmol/L Total CO2 16.2 L (19.0-24.0) mmol/L Base Excess -8.2 L (-2.0-3.0) mmol/L Potassium (3.4-4.6) mmol/L Carbon Dioxide (24-32.6) mmol/L Anion Gap (6.8-13.8) mmol/L BUN (6-23) mg/dL Creatinine (0.4-1.4) mg/dL Est GFR (Non-Af Amer) (60-130) mL/min BUN/Creatinine Ratio (9.0-21.6) Random Glucose (70-110) mg/dL Total Protein (6.2-8.2) gm/dL Albumin (3.4-5.0) gm/dl 02/04/19 02/04/19 02/05/19 Range/Units 13:40 13:40 05:54 RBC 4.11 L (4.7-6.0) M/mm3 Hgb 12.4 L (13.5-18.0) gm/dL Hct 37.8 L (42.0-52.0) % RDW 14.7 H (11.5-14.0) % Immature Gran % (Auto) 1.50 H (0.001-0.429) % Immature Gran # (Auto) 0.14 H (0.000-0.0310) K/mm3 Neutrophils % 89.7 H (42-75.0) % Lymphocytes % 5.4 L (20-51) % Neutrophils # 8.2 H (1.3-6.0) K/mm3 Lymphocytes # 0.49 L (1.5-3.5) k/mm3 PT (9.1-10.7) Seconds INR (Anticoag Therapy) (0.92-1.08) INR PTT ([place]) 58.5 H D (24-32) Seconds Fibrinogen (202-388) mg/dL D-Dimer 1.98 H (0.19-0.49) ug/mL pCO2 (35.0-48.0) mmHg HCO3 (21.0-28.0) mmol/L Total CO2 (19.0-24.0) mmol/L Base Excess (-2.0-3.0) mmol/L Potassium (3.4-4.6) mmol/L Carbon Dioxide (24-32.6) mmol/L Anion Gap (6.8-13.8) mmol/L BUN (6-23) mg/dL Creatinine (0.4-1.4) mg/dL Est GFR (Non-Af Amer) (60-130) mL/min BUN/Creatinine Ratio (9.0-21.6) Random Glucose (70-110) mg/dL Total Protein (6.2-8.2) gm/dL Albumin (3.4-5.0) gm/dl 02/05/19 Range/Units 05:54 RBC (4.7-6.0) M/mm3 Hgb (13.5-18.0) gm/dL Hct (42.0-52.0) % RDW (11.5-14.0) % Immature Gran % (Auto) (0.001-0.429) % Immature Gran # (Auto) (0.000-0.0310) K/mm3 Neutrophils % (42-75.0) % Lymphocytes % (20-51) % Neutrophils # (1.3-6.0) K/mm3 Lymphocytes # (1.5-3.5) k/mm3 PT (9.1-10.7) Seconds INR (Anticoag Therapy) (0.92-1.08) INR PTT ([place]) (24-32) Seconds Fibrinogen (202-388) mg/dL D-Dimer (0.19-0.49) ug/mL pCO2 (35.0-48.0) mmHg HCO3 (21.0-28.0) mmol/L Total CO2 (19.0-24.0) mmol/L Base Excess (-2.0-3.0) mmol/L Potassium 5.4 H (3.4-4.6) mmol/L Carbon Dioxide 20.7 L (24-32.6) mmol/L Anion Gap 15.7 H (6.8-13.8) mmol/L BUN 69 H (6-23) mg/dL Creatinine 2.60 H D (0.4-1.4) mg/dL Est GFR (Non-Af Amer) 26 L D (60-130) mL/min BUN/Creatinine Ratio 26.5 H (9.0-21.6) Random Glucose 221 H (70-110) mg/dL Total Protein 5.6 L (6.2-8.2) gm/dL Albumin 1.8 L (3.4-5.0) gm/dl - Exam Constitutional: Present: Alert - AAO x 1 ENT Exam: Present: hearing grossly normal Neck: Present: supple. Absent: lymphadenopathy (R), lymphadenopathy (L) Respiratory: Present: decreased breath sounds, No rales, No wheezing Cardiovascular/Chest: Present: regular rate, rhythm, no JVD, no murmur Abdomen: Present: Normal bowel sounds, soft, nontender, obese Extremity: Present: no calf tenderness, lower extremity edema Cauti Physician Documentation - Urinary Catheter Management Urethral ([place]) Date of Insertion: 02/04/19 Time of Insertion: 09:05 Date of Removal: 02/04/19 Time of Removal: 09:00 Assessment/Plan Plan Narrative: Vince St has responded to IV fluids and IV antibiotics positively. 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 He no longer had any hypotensive episodes. We did not need to use any vasopressor. His leukocytosis normalized again. His creatinine improved from 3.9-2.6 we will continue with the patient's current medications and present management and will transfer patient to the [facility] floor with telemetry. His CT scan of the head did not show any acute intracranial process. Although his altered mental start that this likely is secondary to his toxic encephalopathy but patient has been noticed not to be using his left upper extremity and does not squeeze when asked to. We will likely get an MRI today. If the patient remains stable and his INR is trending down we will likely transfer patient tomorrow to the [place] for tertiary care. We will get an INR today as it was not done. - Problems/Diagnosis (1) Altered mental status Problem: Acute Qualifiers: Altered mental status type: unspecified Qualified Code(s): R41.82 - Altered mental status, unspecified (2) Low urine output Problem: Acute (3) Hypotension Problem: Acute (4) Acute cholecystitis Problem: Acute (5) Urinary tract infection Problem: Acute (6) Sepsis Problem: Acute (7) Elevated INR Problem: Acute (8) Lactic acidosis Problem: Acute (9) Major depression, recurrent Problem: Chronic Qualifiers: Active/Remission status: currently active Major depression episode severity: unspecified Qualified Code(s): F33.9 - Major depressive disorder, recurrent, unspecified (10) Atrial fibrillation Problem: Chronic Qualifiers: Atrial fibrillation type: chronic (11) Hypothyroidism Problem: Acute (12) Diabetes mellitus Problem: Acute (13) Elevated alkaline phosphatase level Problem: Acute
[2019-02-05 08:06] LABS: Prothrombin Time (Patient) 18.2 Seconds (9.1-10.7)
[2019-02-05 08:11] LABS: INR 1.88 INR (0.92-1.08)
[2019-02-05] MEDS: INSULIN LISPRO 100 UNITS/ML VIAL SC SCH ×4 (08:11→20:17)
[2019-02-05] MEDS: GABAPENTIN 300 MG CAPSULE PO SCH ×3 (09:30→20:16)
[2019-02-05] MEDS: LEVOTHYROXINE SODIUM 25 MCG TABLET PO SCH (09:30)
[2019-02-05] MEDS: PSYLLIUM SEED 1 PACKET PACKET PO SCH (10:12)
[2019-02-05] MEDS: DULoxetine HCL 20 MG CAPSULE.SA PO SCH (10:12)
[2019-02-05] MEDS: METOCLOPRAMIDE HCL 5 MG TABLET PO SCH (10:12)
[2019-02-05] MEDS: POLYETHYLENE GLYCOL 3350 17 GM PACKET PO SCH (10:12)
[2019-02-05] MEDS: FINASTERIDE 5 MG TABLET PO SCH (10:12)
[2019-02-05] MEDS ORDERED: FLUCONAZOLE/SODIUM CHLORIDE 200 MG/100 ML BAG IV SCH (13:00)
[2019-02-05] MEDS: VANCOMYCIN HCL 1 GM in DEXTROSE 5 % IN WATER 250 ML IV SCH ×2 (16:03)
[2019-02-05] MEDS: INSULIN GLARGINE,HUM.REC.ANLOG 100 UNITS/ML VIAL SC SCH (20:16)
[2019-02-06] MEDS: NORMAL SALINE 1,000 ML IV PRN (02:00)
[2019-02-06] MEDS: MEROPENEM 500 MG in NORMAL SALINE 100 ML IV SCH (02:00)
[2019-02-06] MEDS: SENNOSIDES/DOCUSATE SODIUM 1 TAB TABLET PO SCH (05:21)
[2019-02-06 05:56] LABS: Hemoglobin 12.4 gm/dL (13.5-18.0); Mean Cell Volume 92.9 fl (78-100); Mean Corpuscular Hemoglobin 30.3 pg (27-31); Mean Corpuscular Hgb Conc 32.6 g/dl (32-36); Mean Platelet Volume 9.2 fl (8-11.3); Neutrophil # 6.4 K/mm3 (1.3-6.0); Neutrophil % 81.3 % (42-75.0); Platelet Count 267 K/mm3 (150-450); Red Blood Count 4.09 M/mm3 (4.7-6.0); Red Cell Distribution Width 14.6 % (11.5-14.0); White Blood Count 7.9 K/mm3 (4.0-10.5)
[2019-02-06 06:05] LABS: INR 1.86 INR (0.92-1.08)
[2019-02-06 06:21] LABS: Albumin * 1.8 gm/dl (3.4-5.0); Anion Gap 12.2 mmol/L (6.8-13.8); BUN/Creatinine Ratio 40.4 (9.0-21.6); Bilirubin, Total 0.4 mg/dL (0.0-1.1); Ca. Corrected For Albumin 10.9 mg/dL (8.4-10.2); Calcium * 9.5 mg/dL (7.9-10.9); Carbon Dioxide 23.5 mmol/L (24-32.6); Potassium 4.7 mmol/L (3.4-4.6); Total Protein 5.7 gm/dL (6.2-8.2)
[2019-02-06] MEDS: INSULIN LISPRO 100 UNITS/ML VIAL SC SCH ×2 (06:42→11:51)
--- NOTE | 2019-02-06 08:37 | DS ---
(1) Altered mental status Problem: Acute Qualifiers: Altered mental status type: unspecified Qualified Code(s): R41.82 - Altered mental status, unspecified (2) Low urine output Problem: Resolved (3) Hypotension Problem: Resolved (4) Acute cholecystitis Problem: Acute (5) Urinary tract infection Problem: Acute (6) Sepsis Problem: Acute (7) Elevated INR Problem: Acute (8) Lactic acidosis Problem: Resolved (9) Major depression, recurrent Problem: Chronic Qualifiers: Active/Remission status: currently active Major depression episode severity: unspecified Qualified Code(s): F33.9 - Major depressive disorder, recurrent, unspecified (10) Atrial fibrillation Problem: Chronic Qualifiers: Atrial fibrillation type: chronic (11) Hypothyroidism Problem: Chronic (12) Diabetes mellitus Problem: Chronic (13) Elevated alkaline phosphatase level Problem: Resolved Date of Discharge:: 02/06/19 Description of Stay: Vince St is a 73-year-old white male who is a resident of [facility] and 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 The patient is confused and is not able to give a good history. As per on December 29, 2018 the patient fell on the floor and hit his stomach. He complained of severe pain and they brought him to the [facility] emergency room where x-rays and CAT scans were done and they were told that there was no reason for him to be kept in the hospital. They prescribed him pain meds for his extreme back pain. The following day the patient had appointments with the [facility] in [place] and because of his extreme pain he was wheeled to the urgent care center . They did a CAT scan which showed nothing and they were told that all blood tests were okay and so he was sent back on pain meds. The following day, the patient had problems with ambulation needing to use a walker and started having some urinary incontinence. He was then again told to go back to the [facility] emergency room and was admitted there from January 05 to January 15. He was told he had a gallbladder sludge and an infection of his gallbladder and was started on antibiotics. He also was not able to empty his bladder and had to be started on indwelling Murray catheter. [place] [facility] [place]. On January 26 the patient was seen at our emergency room because he was very confused he was told he had a urinary tract infection and was started on antibiotics Cipro which had to be changed because the bug was not sensitive to it he was started on Bactrim and his INR went up high. He has deteriorated for the last 2 weeks and is not able to stand and has been needing to use the [employer] lift for transport. He also has been extremely confused and his sugars have not been stable. He was supposed to go to the [facility] today for a follow-up but because of his condition with low blood pressures and tachycardia the [facility] advised her to bring her to our hospital. The emergency room his initial blood pressure was 102/30 and went down to 94/55and at one time 81/54. and he was given IV boluses. His INR was 6.46, potassium of 5.6, BUN/creatinine of 47 and 3.40, AST of 80 alkaline phosphatase of 177. His white blood cell count was 10.2, ABG of 7.46 CO2 30.5 P PO2 of 67.5 HCO3 of 23.4, oxygen saturation 94.6%. His urinalysis showed urinary tract infection. He is a DNR and does not want any heroic measures done. In the floor he continued to be confused, with BP dropping down. He was given IVF boluses and trnasferred tot he SCU for vasopressors. His UCS showed yeast >100,00. His US of his GB showed acute cholecystitis. General surgery was consulted and they recommended percutaneous tube cholecystotomy when patient is more stable and INR is acceptable. He will need to be transferred for this. His BP responded to increased IVF and his IV rocephin was changed to IV meropenem, Vanco, and Diflucan. He received Vit k . He was transferred to the floor yesterday . His WBC and Cr is normalized, today he is more awake but the patient and the has decided to go home and be on hospice care. Procedures Performed: none Results and Findings: Pending Mircobiology Results 02/03/19 10:51 Blood Blood Culture - Preliminary NO GROWTH AFTER 48 HOURS 02/03/19 10:41 Blood Blood Culture - Preliminary NO GROWTH AFTER 48 HOURS Lab Pending Results 02/03/19 10:27: Urine Color Brown, Urine Appearance Turbid, Urine pH 5.5, Ur Specific [place] >=1.030, Urine Protein 100 H, Urine Glucose (UA) Negative, Urine Ketones Negative, Urine Blood 250 H, Urine Nitrate Negative, Urine Bilirubin Negative, Prot Sulfosalicylic Acd 4+ H, Urine Urobilinogen Normal, Ur Leukocyte Esterase 100 H, Urine RBC >50 H, Urine WBC >50 H, Ur Epithelial Cells 0-5, Urine Bacteria 1+ H, Urine Yeast Many - 3+ H, Urine Culture Comments Culture to follow 02/03/19 10:41: WBC 10.2, RBC 4.66 L, Hgb 14.2, Hct 42.4, MCV 91.0, MCH 30.5, MCHC 33.5, RDW 14.2 H, Plt Count 294, MPV 9.2, Immature Gran % (Auto) 1.40 H, Immature Gran # (Auto) 0.14 H, Neutrophils % 85.0 H, Lymphocytes % 8.0 L, Monocytes % 5.0, Eosinophils % 0.4, Basophils % 0.2, Nucleated RBC % 0.0, Neutrophils # 8.7 H, Lymphocytes # 0.82 L, Monocytes # 0.5, Eosinophils # 0.0, Absolute Basophils 0.0 02/03/19 10:41: Sodium 130 L, Plasma Sodium 132, Potassium 5.6 H, Chloride 95 L, Carbon Dioxide 27.2, Anion Gap 13.4, BUN 47 H D, Creatinine 3.40 H D, Est GFR (Non-Af Amer) 19 L D, BUN/Creatinine Ratio 13.8, Random Glucose 221 H, Calcium 9.0, Calcium Adj for Albumin 10.0, Total Bilirubin 0.4, AST 80 H, ALT 35, Alkaline Phosphatase 177 H, Troponin I 0.093, C-Reactive Prot, Quant 12.8 H, B- Natriuretic Peptide 644, Total Protein 6.5, Albumin 2.3 L 02/03/19 10:41: Lactic Acid, Venous 3.3 H* 02/03/19 10:41: PT 59.5 H, INR (Anticoag Therapy) 6.46 H* 02/03/19 11:25: pCO2 30.5 L, pO2 67.5 L, HCO3 21.4, Total CO2 22.3, Base Excess -1.3, ABG pH 7.46 H, ABG O2 Sat (Measured) 94.6 02/03/19 13:21: Lactic Acid, Venous 2.7 H* 02/04/19 05:55: WBC 11.9 H, RBC 4.47 L, Hgb 13.4 L, Hct 40.5 L, MCV 90.6, MCH 30.0, MCHC 33.1, RDW 14.6 H, Plt Count 297, MPV 9.3, Immature Gran % (Auto) 1.40 H, Immature Gran # (Auto) 0.17 H, Neutrophils % 92.7 H, Lymphocytes % 2.9 L, Monocytes % 2.6, Eosinophils % 0.1, Basophils % 0.3, Nucleated RBC % 0.0, Neutrophils # 11.1 H, Lymphocytes # 0.35 L, Monocytes # 0.3, Eosinophils # 0.0, Absolute Basophils 0.0 02/04/19 05:55: PT 67.2 H, INR (Anticoag Therapy) 7.33 H* 02/04/19 05:55: Sodium 131 L, Plasma Sodium 133, Potassium 5.9 H, Chloride 101, Carbon Dioxide 21.1 L, Anion Gap 14.8 H, BUN 64 H, Creatinine 3.69 H, Est GFR (Non-Af Amer) 17 L, BUN/Creatinine Ratio 17.3, Random Glucose 216 H, Calcium 8.5 02/04/19 05:55: Lactic Acid, Venous 1.8 02/04/19 13:07: pCO2 26.5 L, pO2 83.4, HCO3 15.4 L, Total CO2 16.2 L, Base Excess -8.2 L, ABG pH 7.38, ABG O2 Sat (Measured) 96.3 02/04/19 13:40: Fibrinogen 481 H 02/04/19 13:40: D-Dimer 1.98 H 02/04/19 13:40: PTT ([place]) 58.5 H D 02/05/19 05:54: WBC 9.1 D, RBC 4.11 L, Hgb 12.4 L, Hct 37.8 L, MCV 92.0, MCH 30.2, MCHC 32.8, RDW 14.7 H, Plt Count 256, MPV 9.1, Immature Gran % (Auto) 1.50 H, Immature Gran # (Auto) 0.14 H, Neutrophils % 89.7 H, Lymphocytes % 5.4 L, Monocytes % 3.2, Eosinophils % 0.0, Basophils % 0.2, Nucleated RBC % 0.0, Neutrophils # 8.2 H, Lymphocytes # 0.49 L, Monocytes # 0.3, Eosinophils # 0.0, Absolute Basophils 0.0 02/05/19 05:54: Sodium 135, Plasma Sodium 137, Potassium 5.4 H, Chloride 104, Carbon Dioxide 20.7 L, Anion Gap 15.7 H, BUN 69 H, Creatinine 2.60 H D, Est GFR (Non-Af Amer) 26 L D, BUN/Creatinine Ratio 26.5 H, Random Glucose 221 H, Calcium 8.8, Calcium Adj for Albumin 10.2, Total Bilirubin 0.4, AST 44, ALT 29, Alkaline Phosphatase 128, Total Protein 5.6 L, Albumin 1.8 L 02/05/19 07:40: PT 18.2 H, INR (Anticoag Therapy) 1.88 H 02/06/19 05:51: WBC 7.9, RBC 4.09 L, Hgb 12.4 L, Hct 38.0 L, MCV 92.9, MCH 30.3, MCHC 32.6, RDW 14.6 H, Plt Count 267, MPV 9.2, Immature Gran % (Auto) 1.60 H, Immature Gran # (Auto) 0.13 H, Neutrophils % 81.3 H, Lymphocytes % 10.0 L, Monocytes % 6.2, Eosinophils % 0.4, Basophils % 0.5, Nucleated RBC % 0.0, Neutrophils # 6.4 H, Lymphocytes # 0.79 L, Monocytes # 0.5, Eosinophils # 0.0, Absolute Basophils 0.0 02/06/19 05:51: PT 18.0 H, INR (Anticoag Therapy) 1.86 H 02/06/19 05:51: Sodium 140, Plasma Sodium 141, Potassium 4.7 H, Chloride 109 H, Carbon Dioxide 23.5 L, Anion Gap 12.2, BUN 55 H, Creatinine 1.36 D, Est GFR (Non-Af Amer) 54 L D, BUN/Creatinine Ratio 40.4 H, Random Glucose 184 H, Calcium 9.5, Calcium Adj for Albumin 10.9 H, Total Bilirubin 0.4, AST 34, ALT 32, Alkaline Phosphatase 123, Total Protein 5.7 L, Albumin 1.8 L Discharge Location: Home Disposition: Hospice Home Home Health Agency: [facility] Hospice Condition: Serious Discharge Activity: Activity as tolerated Discharge Diet: Consistent carbs Additional Patient Instructions (free text): Dr. Cullen will follow his Hospice care. Complete Home Medications List: Complete Home Medication List: Acetaminophen [Tylenol] 650 mg PO Q4H PRN 01/26/19 Ascorbic Acid [Vitamin C] 500 mg PO DAILY 01/26/19 Atorvastatin Calcium [Lipitor] 20 mg PO DAILY 01/26/19 Benzocaine/Menthol [Cepacol Sore Throat Lozenge] 1 ea MM Q4H PRN 01/26/19 Cholecalciferol (Vitamin D3) [Vitamin D] 2,000 unit PO DAILY 01/26/19 Cyclobenzaprine HCl [Flexeril] 10 mg PO TID 01/26/19 DULoxetine HCL [Cymbalta] 40 mg PO DAILY 01/26/19 Finasteride [Proscar] 5 mg PO DAILY 01/26/19 Furosemide 20 mg PO QAM 01/26/19 Gabapentin 300 mg PO TID 01/26/19 HYDROcodone/ACETAMINOPHEN [[employer] 5-325] 1 tab PO Q6H PRN 01/26/19 Ibuprofen 800 mg PO TID 01/26/19 Insulin Aspart [Novolog] See Protocol SC AC 01/26/19 Insulin Glargine,Hum.rec.anlog [Lantus] 30 units SC HS 01/26/19 Levothyroxine Sodium [Synthroid] 25 mcg PO DAILY 01/26/19 Losartan Potassium [Cozaar] 100 mg PO DAILY 01/26/19 Metoclopramide HCl [Reglan] 5 mg PO DAILY 01/26/19 Metoprolol Succinate [Toprol Xl] 50 mg PO DAILY 01/26/19 Mirtazapine [Remeron] 30 mg PO HS 01/26/19 Polyethylene Glycol 3350 [Miralax] 17 gm PO DAILY 01/26/19 Potassium Chloride [Klor-Con M20] 40 meq PO DAILY 01/26/19 Prochlorperazine Maleate 5 mg PO Q6H 01/26/19 Psyllium Husk (with Sugar) [Metamucil] 1 pkt PO DAILY 01/26/19 Sennosides/Docusate Sodium [Senna-S Tablet] 1 tab PO Q12H 01/26/19 Tamsulosin HCl [Flomax] 0.4 mg PO DAILY 01/26/19 Warfarin Sodium [Jantoven] 2.5 mg PO SUMOFRSA 01/26/19 amLODIPine BESYLATE [Norvasc] 10 mg PO DAILY 01/26/19 Sulfamethoxazole/Trimethoprim [Bactrim Ds] 1 tab PO BID 02/03/19 Tramadol HCl [Rybix Odt] 50 mg PO Q6H PRN 02/03/19 Vitamin E 400 unit PO DAILY 02/03/19 traZODone HCL [Trazodone HCl] 25 mg PO HS PRN 02/03/19
[2019-02-06 09:21] LABS: Amylase * 28 U/L (25-115); Lipase 162 U/L (73-393)
[2019-02-06] MEDS: POLYETHYLENE GLYCOL 3350 17 GM PACKET PO SCH (10:00)
[2019-02-06] MEDS: FINASTERIDE 5 MG TABLET PO SCH (10:00)
[2019-02-06] MEDS: PSYLLIUM SEED 1 PACKET PACKET PO SCH (10:00)
[2019-02-06] MEDS: LEVOTHYROXINE SODIUM 25 MCG TABLET PO SCH (10:00)
[2019-02-06] MEDS: GABAPENTIN 300 MG CAPSULE PO SCH (10:00)
[2019-02-06] MEDS: DULoxetine HCL 20 MG CAPSULE.SA PO SCH (10:00)
[2019-02-06] MEDS: METOCLOPRAMIDE HCL 5 MG TABLET PO SCH (10:01)
[2019-02-06 12:22] VITALS: BP 165/75
== END 2019-02-06 12:51 | disposition hospice, home (50) | DRG 871 ==
LOC: MS 10:16 → ER 10:16 → OBSVTOIN 13:52 → MS 14:16 → SCU 02-04 12:58 → MS 02-05 14:39
PROVIDERS: ADMIT Internal Medicine; ATTEND Internal Medicine
DX: E11.22 Type 2 diabetes mellitus with diabetic chronic kidney disease; E87.5 Hyperkalemia; E11.9 Type 2 diabetes mellitus without complications; I50.9 Heart failure, unspecified; R65.21 Severe sepsis with septic shock; G92 Toxic encephalopathy; N17.9 Acute kidney failure, unspecified; E66.01 Morbid (severe) obesity due to excess calories; E87.2 Acidosis; G47.33 Obstructive sleep apnea (adult) (pediatric); I25.10 Atherosclerotic heart disease of native coronary artery without angina pectoris; I48.20 Chronic atrial fibrillation, unspecified; I13.0 Hypertensive heart and chronic kidney disease with heart failure and stage 1 through stage 4 chronic kidney disease, or unspecified chronic kidney disease; K81.0 Acute cholecystitis; N39.0 Urinary tract infection, site not specified; Z79.4 Long term (current) use of insulin; Z68.41 Body mass index [BMI] 40.0-44.9, adult; F32.9 Major depressive disorder, single episode, unspecified; N18.9 Chronic kidney disease, unspecified; E80.4 Gilbert syndrome; Z79.01 Long term (current) use of anticoagulants
CPT/HCPCS: 36415; 36600; 70450; 71010; 71045; 76700; 80048; 80053; 81001; 82150; 82803; 83519; 83605; 83690; 83880; 84484; 85025; 85379; 85384; 85610; 85730; 86140; 87040; 87077; 87081; 87086; 87106; 87186; 93005; 94660; 94760; 96374; 99285